=== PATIENT | female | born 1960 | race Caucasian/White ===

== ENCOUNTER 2022-04-21 13:13 | Inpatient (IN) | payer OTHER ==
[~2022-04-21] VITALS: Ht 160 cm; Wt 57.0 kg
[2022-04-21 13:47] LABS: BASOPHILS # (AUTO) 0.1 X10'3 (0-0.2); BASOPHILS % (AUTO) 0.5 % (0-1); EOSINOPHILS % (AUTO) 0.2 % (0-6); HEMATOCRIT 32.8 % (35.0-45.0); HEMOGLOBIN 10.6 g/dl (12.0-16.0); LYMPHOCYTES # (AUTO) 1.8 X10'3 (1.1-4.8); LYMPHOCYTES % (AUTO) 11.7 % (21-51); MEAN CORPUSCULAR HEMOGLOBIN 26.5 PG (27.0-31.0); MEAN CORPUSCULAR HGB CONC 32.4 g/dL (33.0-36.5); MEAN CORPUSCULAR VOLUME 81.7 FL (78-98); MEAN PLATELET VOLUME 7.9 FL (7.4-10.4); MONOCYTES # (AUTO) 1.1 X10'3 (0-0.9); MONOCYTES % (AUTO) 7.4 % (2-12); NEUTROPHILS # (AUTO) 12.4 X10'3 (1.8-7.7); NEUTROPHILS % (AUTO) 80.2 % (42-75); PLATELET COUNT 345 X10'3 (140-440); RED BLOOD COUNT 4.01 X10'6 (4.20-5.60); RED CELL DISTRIBUTION WIDTH 15.8 % (11.5-14.5); WHITE BLOOD COUNT 15.4 X10'3 (4.5-11.0)
[2022-04-21] MEDS ORDERED: normal saline 1000ML IV soln IVB ONE (14:00)
[2022-04-21] MEDS ORDERED: CefTRIAXone/D5W-Rocephin 1gm 50 ML IV ONE (14:00)
[2022-04-21] MEDS ORDERED: albuterol 2.5 MG/3 ML nebule NEB ONE (14:00)
[2022-04-21] MEDS ORDERED: DOXYCYCLINE 100MG CAPSULE PO STA (14:00)
[2022-04-21] MEDS ORDERED: dexamethasone sod phosphate 10mg/ml inj PO STA (14:00)
[2022-04-21 14:05] LABS: ALANINE AMINOTRANSFERASE 184 U/L (12-78); ALBUMIN 2.1 G/DL (3.4-5.0); ALBUMIN/GLOBULIN RATIO 0.4 (1.1-1.5); ALKALINE PHOSPHATASE 193 IU/L (46-116); ANION GAP 8 (8-16); ASPARTATE AMINO TRANSFERASE 265 U/L (10-37); BILIRUBIN,TOTAL 0.9 MG/DL (0.1-1.0); BLOOD UREA NITROGEN 13 MG/DL (7-18); BUN/CREATININE RATIO 13.4 (6.6-38.0); CALCIUM 8.9 MG/DL (8.5-10.1); CHLORIDE 98 MMOL/L (99-107); CREATININE 0.97 MG/DL (0.40-0.90); GLUCOSE 118 MG/DL (70-104); POTASSIUM 4.4 MMOL/L (3.5-5.1); SODIUM 131 MMOL/L (135-145); TOTAL CARBON DIOXIDE 24.9 MMOL/L (24-32); TOTAL PROTEIN 7.4 G/DL (6.4-8.2); eGFR 59 ML/MIN
[2022-04-21] MEDS ORDERED: morphine 4 MG/ML inj SYRINge IV ONE (15:30)
[2022-04-21] MEDS ORDERED: potassium Cl 20 mEq SR tablet PO PRN ×2 (15:55)
[2022-04-21] MEDS ORDERED: magnesium hydroxide 30ml (MOM) UD suspension PO PRN (15:55)
[2022-04-21] MEDS ORDERED: ondansetron/PF 4mg/2ml inj IV PRN (15:55)
[2022-04-21] MEDS ORDERED: mag hydrox/Alum hydrox/simeth 30ml oral suspension PO PRN (15:55)
[2022-04-21] MEDS ORDERED: acetaminophen 325mg tablet PO PRN (15:55)
[2022-04-21] MEDS ORDERED: potassium Cl 40MEQ/1/2NS 520ml 520 ML IV PRN (15:55)
[2022-04-21] MEDS ORDERED: magnesium 4gm in 100ml NS 100 ML IV PRN (15:55)
[2022-04-21] MEDS ORDERED: magnesium Cl slow-release 64mg tablet PO PRN (15:55)
[2022-04-21] MEDS: normal saline 1000ml 1,000 ML IV SCH (16:02)
[2022-04-21] MEDS ORDERED: ALBU17AE26 PO (16:15)
[2022-04-21] MEDS: ipratropium/albuterol 3ml nebule NEB SCH ×2 (19:50→23:38)
[2022-04-21 19:58] LABS: CLARITY,URINE CLEAR (Clear); COLOR,URINE YELLOW (Yellow); GLUCOSE, URINE NEGATIVE (Neg); KETONES,URINE 15 mg/dl (Neg); LEUKOCYTE ESTERASE ,URINE NEGATIVE (Neg); NITRITES, URINE NEGATIVE (Neg); OCCULT BLOOD,URINE NEGATIVE (Neg); PH,URINE 5.5 (4.8-8.0); PROTEIN,URINE TRACE mg/dl (Neg); UROBILINOGEN,URINE 0.2 E.U/dL (0.2-1.0)
[2022-04-21 20:00] VITALS: BP 105/56
[2022-04-21] MEDS: enoxaparin 30mg/0.3ml syringe SQ SCH (20:00)
[2022-04-21] MEDS: K and/or MAG REPLACEMENT MC SCH (20:00)
[2022-04-21] MEDS: docusate sod 100mg capsule PO SCH (20:00)
[2022-04-21 20:01] LABS: UA COLLECTION TYPE CLN CATCH MIDSTREAM
[2022-04-21 20:06] LABS: BACTERIA,URINE FEW /HPF (Neg); RBC,URINE 0-2 /HPF (0-2); SQUAMOUS EPITHELIAL CELL,UR FEW /LPF (FEW); WBC,URINE 0-4 /HPF (0-4)
[2022-04-21 22:00] VITALS: BP 92/49
--- NOTE | 2022-04-21 23:17 | NUR ---
PT REFUSED BOTH THE COLACE AND THE LOVENOX. PT WAS EDUCATED ON THE IMPORTANCE OF BOTH MEDICATIONS BUT DECLINED AT THIS TME. PT WAS GIVEN THE READING MATERIAL FOR THE LOVENOX AND SAID SHE WOULD LIKE TO READ IT FIRST AND WOULD LET HER NURSE KNOW TOMORROW IF SHE HAD DECIDED TO RECEIVE THE LOVENOX.
[2022-04-22] MEDS: normal saline 1000ml 1,000 ML IV SCH ×3 (01:38→22:50)
[2022-04-22] MEDS: ipratropium/albuterol 3ml nebule NEB SCH ×6 (03:08→23:40)
[2022-04-22 06:09] LABS: BASOPHILS % (AUTO) 0.1 % (0-1); EOSINOPHILS % (AUTO) 0 % (0-6); HEMATOCRIT 28.5 % (35.0-45.0); HEMOGLOBIN 9.5 g/dl (12.0-16.0); LYMPHOCYTES % (AUTO) 10.5 % (21-51); MEAN CORPUSCULAR HEMOGLOBIN 28.4 PG (27.0-31.0); MEAN CORPUSCULAR HGB CONC 33.2 g/dL (33.0-36.5); MEAN CORPUSCULAR VOLUME 85.4 FL (78-98); MEAN PLATELET VOLUME 8.3 FL (7.4-10.4); MONOCYTES # (AUTO) 0.5 X10'3 (0-0.9); MONOCYTES % (AUTO) 5.2 % (2-12); NEUTROPHILS # (AUTO) 7.7 X10'3 (1.8-7.7); NEUTROPHILS % (AUTO) 84.2 % (42-75); PLATELET COUNT 307 X10'3 (140-440); RED BLOOD COUNT 3.33 X10'6 (4.20-5.60); RED CELL DISTRIBUTION WIDTH 15.8 % (11.5-14.5); WHITE BLOOD COUNT 9.1 X10'3 (4.5-11.0)
[2022-04-22 06:14] LABS: ALBUMIN 1.6 G/DL (3.4-5.0); ANION GAP 9 (8-16); BLOOD UREA NITROGEN 17 MG/DL (7-18); BUN/CREATININE RATIO 23.3 (6.6-38.0); CALCIUM 8.5 MG/DL (8.5-10.1); CHLORIDE 107 MMOL/L (99-107); CREATININE 0.73 MG/DL (0.40-0.90); GLUCOSE 187 MG/DL (70-104); MAGNESIUM 2.4 MG/DL (1.5-2.4); POTASSIUM 4.1 MMOL/L (3.5-5.1); SODIUM 139 MMOL/L (135-145); TOTAL CARBON DIOXIDE 23.3 MMOL/L (24-32); eGFR 81 ML/MIN
--- NOTE | 2022-04-22 06:24 | NUR ---
Problems reprioritized. Patient report given, questions answered & plan of care reviewed with DOYLE MILNER.
[2022-04-22 06:31] VITALS: BP 95/59
--- NOTE | 2022-04-22 06:37 | NUR ---
Patient in room [facility]. I have received report from Millicent KWON and had the opportunity to ask questions and assume patient care.
[2022-04-22] MEDS: docusate sod 100mg capsule PO SCH ×2 (08:00→20:00)
[2022-04-22] MEDS: K and/or MAG REPLACEMENT MC SCH ×2 (08:00→18:59)
[2022-04-22] MEDS: enoxaparin 30mg/0.3ml syringe SQ SCH ×2 (08:00→20:00)
[2022-04-22] MEDS: azithromycin 250mg tablet PO SCH (08:58)
[2022-04-22] MEDS: prednisone 10mg tablet PO SCH (08:58)
[2022-04-22] MEDS: CefTRIAXone 2gm/D5W 50ml BAG 50 ML IV SCH (09:00)
[2022-04-22 10:00] VITALS: BP 91/53
--- NOTE | 2022-04-22 13:35 | NUR ---
Malnutrition consult: Pt reports 2-13 lb wt loss with decreased appetite per malnutrition risk screen with RN. Pt admit for sepsis secondary to PNA, acute respiratory failure with hypoxemia, and tachycardia with recent COVID. Per EMR pt with no decrease in muscle strength or edema and pt appears well developed well nourished. Pt on a heart healthy diet and eating well, documented with 75-100% PO intake meeting estimated nutrient needs. Likely that pt experienced some wt changes r/t recent COVID however pt currently lacks a minimum of two criteria for malnutrition. LBM 04/20, with routine bowel care available however pt refusing per EMR. Will continue to follow and monitor need for nutrition intervention. Recommendations: 1) Liberalize to regular diet 2) Routine bowel care 3) Scaled wt this admit; subsequent weekly scaled weights Addendum: 04/22/22 at [address] Amended: Links added.
[2022-04-22] MEDS ORDERED: iohexol 350MG/ML 100ml bottle IV ONE (15:01)
--- NOTE | 2022-04-22 16:47 | NUR ---
Today I oriented Cecille Oviedo RN. We conducted the assessment of the patient together and Imade sure that her assessment is complete. I agree with the Physical Assessment charted by Cecille Oviedo RN today 04/22/22. Addendum: 04/22/22 at 1650 by Carmen Morales RN Amended: Links added.
[2022-04-22 18:00] VITALS: BP 102/60
--- NOTE | 2022-04-22 18:10 | NUR ---
Problems reprioritized. Patient report given to Millicent KWON, questions answered & plan of care reviewed with .
[2022-04-22 22:00] VITALS: BP 90/57
[2022-04-23] MEDS: ipratropium/albuterol 3ml nebule NEB SCH ×3 (02:55→11:19)
--- NOTE | 2022-04-23 06:02 | NUR ---
Problems reprioritized. Patient report given, questions answered & plan of care reviewed with DOYLE MILNER.
--- NOTE | 2022-04-23 06:32 | NUR ---
Patient in room [facility]. I have received report from Millicent KWON and had the opportunity to ask questions and assume patient care.
[2022-04-23 06:37] LABS: BASOPHILS % (AUTO) 0.1 % (0-1); EOSINOPHILS % (AUTO) 0.2 % (0-6); HEMATOCRIT 27.9 % (35.0-45.0); HEMOGLOBIN 8.9 g/dl (12.0-16.0); LYMPHOCYTES % (AUTO) 14.3 % (21-51); MEAN CORPUSCULAR HEMOGLOBIN 27.1 PG (27.0-31.0); MEAN CORPUSCULAR HGB CONC 31.9 g/dL (33.0-36.5); MEAN PLATELET VOLUME 7.9 FL (7.4-10.4); MONOCYTES # (AUTO) 0.8 X10'3 (0-0.9); MONOCYTES % (AUTO) 5.9 % (2-12); NEUTROPHILS # (AUTO) 10.8 X10'3 (1.8-7.7); NEUTROPHILS % (AUTO) 79.5 % (42-75); PLATELET COUNT 371 X10'3 (140-440); RED BLOOD COUNT 3.29 X10'6 (4.20-5.60); RED CELL DISTRIBUTION WIDTH 16.4 % (11.5-14.5); WHITE BLOOD COUNT 13.6 X10'3 (4.5-11.0)
[2022-04-23 06:41] LABS: ALBUMIN 1.5 G/DL (3.4-5.0); ANION GAP 4 (8-16); BLOOD UREA NITROGEN 16 MG/DL (7-18); BUN/CREATININE RATIO 21.6 (6.6-38.0); CALCIUM 8.2 MG/DL (8.5-10.1); CHLORIDE 110 MMOL/L (99-107); CREATININE 0.74 MG/DL (0.40-0.90); GLUCOSE 112 MG/DL (70-104); POTASSIUM 4.4 MMOL/L (3.5-5.1); SODIUM 140 MMOL/L (135-145); TOTAL CARBON DIOXIDE 26.4 MMOL/L (24-32); eGFR 80 ML/MIN
[2022-04-23 06:43] VITALS: BP 101/58
[2022-04-23] MEDS: azithromycin 250mg tablet PO SCH (07:19)
[2022-04-23] MEDS: prednisone 10mg tablet PO SCH (07:20)
[2022-04-23] MEDS: CefTRIAXone 2gm/D5W 50ml BAG 50 ML IV SCH (07:24)
[2022-04-23] MEDS: normal saline 1000ml 1,000 ML IV SCH (07:32)
[2022-04-23] MEDS: K and/or MAG REPLACEMENT MC SCH (07:35)
--- NOTE | 2022-04-23 07:35 | NUR ---
Student Medication Administration: For this medication-pass time frame, all medication were reviewed, dispensed, administered and documented per hospital policy by nayan tohrnton student nurse and edgardo aguirre rn.
[2022-04-23] MEDS: enoxaparin 30mg/0.3ml syringe SQ SCH (07:39)
[2022-04-23] MEDS: docusate sod 100mg capsule PO SCH (07:39)
[2022-04-23 08:43] LABS: HEP A AB, IGM Negative (Negative); HEPATITIS C VIRUS ANTIBODY Non Reactive (Non Reactive)
[2022-04-23 08:45] LABS: ANISOCYTOSIS 1+; PLATELET ESTIMATE NORMAL; TOTAL CELLS COUNTED 100
[2022-04-23 08:46] LABS: BURR CELLS FEW; ELLIPTOCYTES FEW; SCHISTOCYTES FEW
[2022-04-23 08:48] VITALS: BP 89/51
[2022-04-23 10:00] VITALS: BP 93/46
[2022-04-23] MEDS ORDERED: DOXY100C2 PO (11:50)
[2022-04-23] MEDS ORDERED: CEFD300C3 PO (11:50)
--- NOTE | 2022-04-23 12:03 | NUR ---
Today I oriented Cecille Juares We conducted the physical assessment together. I agree with the physical assessment charted by Cecille. Addendum: 04/23/22 at 1205 by Carmen Morales RN Amended: Links added.
--- NOTE | 2022-04-23 14:45 | NUR ---
Pt discharged with instructions verbalizing understanding of instructions in w/c accompanied by nursing staff, going home via private vehicle. All lines and tubes including PIV with cannula intact and tele monitor have been removed. Education has been provided at bedside and all questions have been answered. Pt is stable and appropriate to go home.
--- NOTE | 2022-04-23 15:12 | NUR ---
Student documentation: I have reviewed and agree with all interventions, assessments performed and documented by Babita Baeza student nurse, by Maria Eugenia Guo RN Instructor.
== END 2022-04-23 14:45 | disposition home or self-care (01) | DRG 871 ==
LOC: ER 13:15 → ED HOLD 15:55 → SUR 3N 19:30
PROVIDERS: ADMIT Family Medicine; ATTEND Family Medicine
PROC: B32T1ZZ Computerized Tomography (CT Scan) of Left Pulmonary Artery using Low Osmolar Contrast (ICD-10-PCS; principal; 2022-04-22)
PROC: B3201ZZ Computerized Tomography (CT Scan) of Thoracic Aorta using Low Osmolar Contrast (ICD-10-PCS; 2022-04-22)
PROC: B32S1ZZ Computerized Tomography (CT Scan) of Right Pulmonary Artery using Low Osmolar Contrast (ICD-10-PCS; 2022-04-22)
DX: A41.9 Sepsis, unspecified organism (principal); J18.9 Pneumonia, unspecified organism; J96.01 Acute respiratory failure with hypoxia; E87.1 Hypo-osmolality and hyponatremia; J44.0 Chronic obstructive pulmonary disease with (acute) lower respiratory infection; Z20.822 Contact with and (suspected) exposure to COVID-19; K80.20 Calculus of gallbladder without cholecystitis without obstruction; Z86.16 Personal history of COVID-19; Z87.891 Personal history of nicotine dependence; Z88.1 Allergy status to other antibiotic agents; Z90.710 Acquired absence of both cervix and uterus; Z79.899 Other long term (current) drug therapy
CPT/HCPCS: 36415; 71045; 71275; 76700; 80048; 80053; 81001; 83605; 83735; 83880; 84145; 84484; 85007; 85025; 86705; 86706; 86709; 86803; 87040; 87081; 87522; 87635; 93005; 94640; 94760; 99285; C9803; G0378; J0696; J1100; J2270; J3490; J7030; J7512; Q9967